=== PATIENT | male | born 1950 | race Caucasian/White ===

== ENCOUNTER 2020-12-04 13:23 | Outpatient (REF) | payer MEDICARE, SELFPAY ==
[2020-12-04 15:36] LABS: Prostate Specific Antigen 2.54 ng/mL (<0.05-4.0)
== END 2020-12-04 13:24 | disposition home or self-care (01) ==
LOC: HO.LAB 13:23
PROVIDERS: PCP Nurse Practitioner Adult Health; Visit Provider Urology
DX: Z12.5 Encounter for screening for malignant neoplasm of prostate (principal); R39.12 Poor urinary stream; N40.1 Benign prostatic hyperplasia with lower urinary tract symptoms; N13.8 Other obstructive and reflux uropathy
CPT/HCPCS: 36415; 51798; 84153; 99202

== ENCOUNTER 2022-08-27 15:45 | Outpatient (REF) | payer MEDICARE, SELFPAY ==
[2022-08-27 18:17] LABS: Prostate Specific Antigen 3.33 ng/mL (<0.05-4.0)
== END 2022-08-27 15:46 | disposition home or self-care (01) ==
LOC: HO.LAB 15:45
PROVIDERS: PCP Nurse Practitioner Adult Health; Visit Provider Urology
DX: Z12.5 Encounter for screening for malignant neoplasm of prostate (principal); R39.12 Poor urinary stream
CPT/HCPCS: 36415; 84153

== ENCOUNTER → 2022-09-05 10:15 | Outpatient (BNVA) | payer MEDICARE, SELFPAY | PROVIDERS: PCP Nurse Practitioner Adult Health; Visit Provider Urology | DX: N40.1 Benign prostatic hyperplasia with lower urinary tract symptoms (principal); R35.1 Nocturia; R39.12 Poor urinary stream | CPT/HCPCS: 99212 ==

== ENCOUNTER 2023-10-09 09:57 | Outpatient (REF) | payer MEDICARE, SELFPAY ==
[2023-10-09 11:38] LABS: Prostate Specific Antigen 2.37 ng/mL (<0.05-4.0)
== END 2023-10-09 09:58 | disposition home or self-care (01) ==
LOC: HO.LAB 09:57
PROVIDERS: Visit Provider Urology
DX: Z12.5 Encounter for screening for malignant neoplasm of prostate (principal); R39.12 Poor urinary stream
CPT/HCPCS: 36415; 84153

== ENCOUNTER 2023-10-13 11:36 | Outpatient (AMB) | payer MEDICARE, SELFPAY ==
--- NOTE | 2023-10-13 11:49 | MHC.OFFVIS ---
Intake Visit Reasons: PSA- follow up(set) Allergies No Known Allergies [No Known Allergies*] Allergy (Verified 09/05/22 11:21) Medication List - Last Reconciled 10/13/23 by Xu Weeks MD tamsulosin 0.4 mg PO BEDTIME 30 days HPI Comments Details: Miah is a pleasant male. He is a patient of Dr. Gutierrez. He is seen for the following urologic condition - lower urinary tract symptoms Not using medications Symptoms currently stable Twelve month follow-up PSA Lower urinary tract symptoms progressive weakness of stream not currently on any medications associated symptoms - nocturia x2, hesitancy no prior medications normal rectal exam PSA 01/22 3.4, 08/28 3.3, 09/29 2.4 Twelve month follow-up PSA [facility] Medical History (Updated 11/11/22 @ 22:05 by Xu Weeks MD) Spermatocele Nocturia Benign prostatic hyperplasia with lower urinary tract symptoms Medial meniscus tear Review of Systems Const Denies chills and Denies fever(s) Card Reports no additional complaints and Denies syncope Resp Denies cough GI Denies abdominal pain and Denies heartburn Reports as per HPI and Denies change in libido Neuro Denies syncope Psych Denies change in libido Endo Denies change in libido Physical Exam Const General: cooperative, healthy appearing, comfortable and no acute distress Orientation/consciousness: patient oriented x3 HEENT Face and sinus: Yes normal facial exam Mouth: moist mucous membranes Neck Neck: Yes normal visual inspection, Yes full ROM and Yes trachea midline Chest Chest palpation & inspection: normal inspection of the chest Resp Effort & Inspection: normal respiratory effort, able to speak in complete sentences and no respiratory distress GI Inspection: Yes normal to inspection Back/Spine/Pelvis Cervical Spine: normal cervical lordosis Thoracic/Lumbar Spine: thoracic and lumbar spine normal to inspection Skin General skin exam: no rashes or lesions noted Neuro General: patient oriented x3, gait normal, tone normal and moves all extremities Extrem General: Yes normal to inspection and Yes capillary refill normal Assessment & Plan Assessment & Plan (1) Benign prostatic hyperplasia with lower urinary tract symptoms: Code(s): N40.1 - Benign prostatic hyperplasia with lower urinary tract symptoms Category: Medical (2) Nocturia: Code(s): R35.1 - Nocturia Category: Medical (3) Weak urinary stream: Code(s): R39.12 - Poor urinary stream Category: Medical Plan Twelve month follow-up PSA Orders: Orders Prostate Specific Antigen 364 Days N40.1 - Benign prostatic hyperplasia with lower urinary tract symptoms Patient Instructions: Imaging studies, laboratory and physical exam results were discussed and reviewed in detail. No major barriers to patient understanding were identified. An opportunity to ask questions regarding the treatment plan was provided. All questions were answered. The patient expressed understanding and agreement with the above treatment plan. The patient is aware they should contact our office by phone for worsening of their current condition or the appearance of new urologic symptoms. Compliance is encouraged with any medications and followup testing that is ordered. It is a privilege to participate in the urologic care of your patient. If you have any questions or concerns regarding treatment for the above conditions, or other urologic issues, please do not hesitate to contact me. The office telephone contact is [phone]. This note is constructed using voice recognition software. While every effort has been made to ensure accuracy tools developer errors may have been included. Yours sincerely, Dr Xu Weeks MD, [facility] - Urology Providers of Expert, Compassionate Care for the Genitourinary System Coding Level of Care Code Est Pt Level 4 (65407) Diagnoses Benign prostatic hyperplasia with lower urinary tract symptoms N40.1 Nocturia R35.1 Weak urinary stream R39.12
== END 2023-10-13 12:20 | disposition home or self-care (01) ==
PROVIDERS: PCP Nurse Practitioner Adult Health; Visit Provider Urology
DX: N40.1 Benign prostatic hyperplasia with lower urinary tract symptoms (principal); R35.1 Nocturia; R39.12 Poor urinary stream
CPT/HCPCS: 99213

== ENCOUNTER → 2023-10-13 11:36 | Outpatient (BNVA) | payer MEDICARE, SELFPAY | PROVIDERS: PCP Nurse Practitioner Adult Health; Visit Provider Urology | DX: N40.1 Benign prostatic hyperplasia with lower urinary tract symptoms (principal); R35.1 Nocturia; R39.12 Poor urinary stream | CPT/HCPCS: 99212 ==

== ENCOUNTER 2024-09-02 08:28 | Day surgery (SDC) | payer MEDICARE, OTHER, SELFPAY ==
--- OUTSIDE RECORDS SUMMARY | 2024-08-02 11:08 | XMS_ITS | Encounter Summary ---
Author Organization [facility] Address [address] [place] [address] Care Team Providers Care Rotor Pilot Name Role Phone Dennise Gutierrez CLAUDIA Primary Care Provider [phone] Reason for Visit * Reason Onset Date Comments No Call No Show 07/04/2024 Encounter Details Date Type Department Care Team (Late st Contact Info) Description 07/04/[address] [facility] [address] [facility] [address] [place] [phone] Bev Carballo [place] No Call No Show Social History Tobacco Use Types Packs/Day Years Used Date Smoking Tobacco: Never Assessed Sex and Gender Information Value Date Recorded Sex Assigned at Not on file Legal Sex Male 11:58 AM EST Gender Identity Not on file Sexual Orientation Not on file documented as of this encounter Progress Notes * Bev Carballo MA - 07/04/2024 3:03 PM EST Patient recently no-showed appointment on 06/15/24 however has an upcoming rescheduled appointment in August. documented in this encounter Plan of Treatment Upcoming Encounters Date Type Department Care Team (Late st Contact Info) Description 08/15/2024 10:00 AM EDT Office Visit [facility] [address] [place] [phone] Dorian Linares MD [address] [place] [address] [address] [place] [address] documented as of this encounter Visit Diagnoses Not on filedocumented in this encounter Care Teams Rotor Pilot Relationship Specialty Start Date End Date Dennise Gutierrez NP [address] [place] [address] [address] [place] [address] PCP - General 10/19/21 documented as of this encounter
--- OUTSIDE RECORDS SUMMARY | 2024-08-02 11:09 | XMS_ITS | Encounter Summary ---
Author Organization [facility] Address [address] [place] [address] Care Team Providers Care Trim Machine Operator Name Role Phone Community, Pcp Primary Care Provider Dennise Gasca NP Primary Care Provider Unava ilable Encounter Details Date Type Department Care Team Description 12/03/2017 Business Doc Medical Records [address] [place] [id number] Abstract, Provider Social History Tobacco Use Types Packs/Day Years Used Date Smoking Tobacco: Former Smokeless Tobacco: Never Sex Assigned at Date Recorded Not on file documented as of this encounter Plan of Treatment Not on file documented as of this encounter Visit Diagnoses Not on filedocumented in this encounter Care Teams Trim Machine Operator Relationship Specialty Start Date End Date Community, Pcp PCP - General Internal Medicine 10/26/17 10/18/21 Dennise Gutierrez NP PCP - General Nurse Practioner Adult Health 10/19/21 documented as of this encounter
--- OUTSIDE RECORDS SUMMARY | 2024-08-02 11:09 | XMS_ITS | Clinical Summary ---
Author Organization [facility] Address [address] [place] [address] Phone Care Team Providers Care Product Support Rep Name Role Phone Dennise Gutierrez SUPERVISOR CUSTOMER COMPLAINT SERVICE Primary Care Provider [phone] Allergies No known active allergies Active Problems Problem Noted Date Diagnosed Date Elevated coronary artery calcium score Essential hypertension 06/13/2024 Hypercholesteremia 06/13/2024 Encounters Date Type Department Care Team Description 07/04/2024 Telephone [facility] [address] [place] [address] [place] [address] Bev Carballo [place] No Call No Show 05/13/2024 Telephone [facility] [address] [place] [phone] Dennise Gutierrez NP Referral from Last 3 Months Medical History Medical History Date Comments Type 2 diabetes mellitus wit h hyperglycemia, without long-term current use of insulin ([facility]) Family history of heart disease Social History Tobacco Use Types Packs/Day Years Used Date Smoking Tobacco: Never Assessed Sex and Gender Information Value Date Recorded Sex Assigned at Not on file Legal Sex Male 11:58 AM EST Gender Identity Not on file Sexual Orientation Not on file Obstetrics History Plan of Treatment Upcoming Encounters Date Type Department Care Team (Late st Contact Info) Description 08/15/2024 10:00 AM EDT Office Visit [facility] [address] [place] [phone] Dorian Linares MD [address] [place] [address] [place] [address] Health Maintenance Due Date Last Done Comments DTaP,Tdap,and Td Vaccines (1 - Tdap) 1971 Pneumococcal Vaccine: 50+ Ye ars (1 of 1 - PCV) 2002 Zoster Vaccines (1 of 2) 2002 Abdominal Aortic Aneurysm (A AA) Screen 05/06/2022 Cholesterol Screening (Lipid Panel) 05/06/2022 Colorectal Cancer Screening: Colonoscopy 05/06/2022 Depression Screening 05/06/2022 Falls Risk Assessment 05/06/2022 Hepatitis C Screening 05/06/2022 Medicare Annual Wellness Visit 05/06/2022 Social Influencers of Health Screening 05/06/2022 COVID-19 Vaccine (1 - 2023-2 5 season) 2024 Influenza Vaccine (#1) 2024 Hypertension/CHF/CAD Annual BMP Blood Test 05/18/2024 RSV Immunization Patients 60 + Years Old (1 - 1-dose 75+ series) 2027 HIB Vaccines Aged Out No longer eligi ble based on patient's age to complete this topic HPV Vaccines Aged Out No longer eligi ble based on patient's age to complete this topic Hepatitis A Vaccines Aged Out No long er eligible based on patient's age to complete this topic Hepatitis B Vaccines Aged Out No long er eligible based on patient's age to complete this topic IPV Vaccines Aged Out No longer eligi ble based on patient's age to complete this topic MMR Vaccines Aged Out No longer eligi ble based on patient's age to complete this topic Meningococcal ACWY Vaccine Aged Out N o longer eligible based on patient's age to complete this topic Meningococcal B Vacine Aged Out No lo nger eligible based on patient's age to complete this topic RSV Immunization Patients Un [place] 20 months Aged Out No longer eligible b ased on patient's age to complete this topic Varicella Vaccines Aged Out No longer eligible based on patient's age to complete this topic [place] [address] MEDICARE Care Teams Product Support Rep Relationship Specialty Start Date End Date Dennise Gutierrez NP [address] [place] [address] [address] [place] [address] PCP - General 10/19/21
--- OUTSIDE RECORDS SUMMARY | 2024-08-02 11:09 | XMS_ITS | Continuity of Care Document ---
Author Name [facility] Address [address] [place] [address] Organization [facility] Care Team Providers Care Government Guard Name Role Phone [facility] Unavailable Unavailable Problems Problem Status Onset Date Problem Type Date of Resolution Comme nts Source Ankle joint pain (finding) 10/06/2023 Diagnosis Results Order Name Results Value Reference Range Date Interpretation Comments Source XR Ankle Complete 3+ Views Left XR Ankle Complete 3+ Views Left XR General Diagnostic Accession # Exam Date/Time Procedure Ordering Provider [id number] 10/06/2023 14:12 CDT XR Ankle Complete 3+ Luebbert SERVER SUPPORT TECHNICIAN-C, Yanelis Views Left N Reason For Exam (XR Ankle Complete 3+ Views Left) anterior ankle pain Report INDICATION: Left ankle pain TECHNIQUE: 3 views of the left ankle are obtained. FINDINGS: No fracture or dislocation identified. There is a tiny plantar calcaneal spur. Corticated bone fragment the talonavicular joint is noted. IMPRESSION: No fracture or dislocation identified. * * *Final Report* * * Electronically Signed by: Danny Santos MD Signed on: 10/06/23 14:20 10/05 14:01 :32 [facility] Vital Signs Vital Sign Value Date Comments Source SBP NIBP 154 mm[Hg] 10/06/2023 18:40:[address] [facility] [address] DBP NIBP 79 mm[Hg] 10/06/2023 18:40:00 [facility] Heart Rate 70 bpm 10/06/2023 18:40:00 [facility] Respiratory Rate 18 breaths/min 10/06/2023 18:40:00 [facility]gent [facility] SpO2 95 % 10/06/2023 18:40:00 Urgent [facility] Temperature (Celsius) 37.2 Franchesca 10/06/2023 18:40:00 [facility] [address] Encounters Location Location Details Encounter Type Encounter Number Reason For Visit Attending Provider ADM Date DC Date Status Source [facility]gent [facility] [id number] Yanelis Dennis 10/05 18:31 :38 10/05 19:52 :00 [facility] [address] Social History Social History Date Source No data available for this section 10/06/2023 [facility] [address] [address]
--- OUTSIDE RECORDS SUMMARY | 2024-08-02 11:09 | XMS_ITS | Encounter Summary ---
Author Organization [facility] Address [address] [place] [address] Care Team Providers Care Nurse Technician Name Role Phone Community, Pcp Primary Care Provider Dennise Gasca NP Primary Care Provider Unava ilable Encounter Details Date Type Department Care Team Description 12/16/2017 Release of Information Medical Records [address] [place] [id number] Abstract, Provider Social History Tobacco Use Types Packs/Day Years Used Date Smoking Tobacco: Former Smokeless Tobacco: Never Sex Assigned at Date Recorded Not on file documented as of this encounter Plan of Treatment Not on file documented as of this encounter Visit Diagnoses Not on filedocumented in this encounter Care Teams Nurse Technician Relationship Specialty Start Date End Date Community, Pcp PCP - General Internal Medicine 10/26/17 10/18/21 Dennise Gutierrez NP PCP - General Nurse Practioner Adult Health 10/19/21 documented as of this encounter
[2024-08-31 15:02] VITALS: BMI 26.0
--- NOTE | 2024-09-01 08:56 | HO.ANESPROP2 ---
Documented by User: Aura Jenkins NP 09/01/24 08:56 HPI - Anesthesia Eval Consult details Narrative: 74yo M for Colonoscopy [facility] Active Problems Active Problems: All Active Problems Weak urinary stream (Acute) Nocturia (Acute) Benign prostatic hyperplasia with lower urinary tract symptoms (Acute) Past Medical History Medical History Spermatocele Nocturia Benign prostatic hyperplasia with lower urinary tract symptoms Medial meniscus tear Surgical History Surgical History Hx of tonsillectomy Hx of splenectomy (~1960) History of esophagogastroduodenoscopy (EGD) Hx of colonoscopy Social History Social History Patient Tobacco Use Status: Former Tobacco user Use of substances other than those prescribed or required for medical reasons: Yes Are you DNR?: No Advance Directives: No Advance Directives Information Provided: Yes Recently lost weight without trying: No Nutrition Risks: No Nutritional Risk Meds Allergies Allergy/AdvReac Type Severity Reaction Status Date / Time No Known Allergies Allergy Verified 08/31/24 15:01 [No Known Allergies*] Home Medications ?Medication ?Instructions ?Recorded ?Confirmed ?Last Taken ?Type lisinopril 10 mg tablet 10 mg PO DAILY 08/31/24 08/31/24 Unknown History rosuvastatin 5 mg tablet 5 mg PO DAILY 08/31/24 08/31/24 Unknown History Exam Height,Weight and Vital Signs: Height 5 ft 10 in Weight 82.1 kg Assessment and Plan Assessment Anesthesia Assessment: Chart Reviewed Documented by User: Kaitlin Loyd MD 09/02/24 10:12 [facility] Past Medical History Medical History Spermatocele Nocturia Benign prostatic hyperplasia with lower urinary tract symptoms Medial meniscus tear Family History Family history of problems with anesthesia: No Surgical History Surgical History Hx of tonsillectomy Hx of splenectomy (~1960) History of esophagogastroduodenoscopy (EGD) Hx of colonoscopy History of Problems with Anesthesia: No Social History Social History Patient Tobacco Use Status: Former Tobacco user Use of substances other than those prescribed or required for medical reasons: Yes Are you DNR?: No Advance Directives: No Advance Directives Information Provided: Yes Recently lost weight without trying: No Nutrition Risks: No Nutritional Risk Meds Allergies Allergy/AdvReac Type Severity Reaction Status Date / Time No Known Allergies Allergy Verified 08/31/24 15:01 [No Known Allergies*] Home Medications ?Medication ?Instructions ?Recorded ?Confirmed ?Last Taken ?Type lisinopril 10 mg tablet 10 mg PO DAILY 08/31/24 08/31/24 Unknown History rosuvastatin 5 mg tablet 5 mg PO DAILY 08/31/24 08/31/24 Unknown History Exam Height,Weight and Vital Signs: Height 5 ft 10 in Weight 82.1 kg Vital Signs Temp Pulse Resp BP Pulse Ox O2 Del Method 09/02/24 09:16 97.7 F 64 16 140/60 H 98 Room Air Airway Mallampati Class: III TM Dist: >3cm Neck ROM: Full Loose/Missing/Broken Teeth: Yes (Missing molars. Denies broken or loose teeth ) Heart: RRR Lungs: CTAB Assessment and Plan Assessment Anesthesia Assessment: Anesthesia Plan Discussed and Chart Reviewed Final Anesthetic Review Family History of Problems with Anesthesia: No History of Problems with Anesthesia: No NPO: Yes ASA Class: II Final Preanesthetic Review: No Changes in Pt Med Stat, Meds/Allgs Chart Reviewed, Consent Obtained/Reviewed and Anes Risks/Benef Reviewed Patient Risk: Low Procedure Risk: Low Assessment/Block/Sedation in SS: Assess/Block/Sedation-SS Anesthetic Plan Anesthetic Plan: TIVA Disposition: Standard PACU
[2024-09-02 09:00] VITALS: BMI 26.3
[2024-09-02 09:16] VITALS: BP 140/60; PULSE 64; RESP 16; TEMP 36.5; O2SAT 98
[2024-09-02] MEDS: Lactated Ringers 1,000 ML 100 ML IVCONT (09:22)
[2024-09-02 10:47] VITALS: BP 88/45; PULSE 49; RESP 14; TEMP 36.1
--- NOTE | 2024-09-02 10:49 | P.BOP_ITS ---
Brief Operative Note Date of Service: 09/02/24 Pre-op diagnosis: Screening Post-op diagnosis: other (Colon polyp) Procedure: Colonoscopy to the cecum and TI with bx/removal of polyp Surgeon: Tae Jessica MD Anesthesia: MAC Was an Marine Cargo Inspector used for this Procedure?: No Estimated blood loss (mL): 2.0 Pathology: other (A. Polyp at 20cm) Condition: stable Disposition: PACU
[2024-09-02 11:07] VITALS: BP 106/54; PULSE 47; RESP 18; TEMP 36.2; O2SAT 100
--- NOTE | 2024-09-02 11:32 | OP_ITS ---
DATE OF SERVICE: 09/02/2024 SURGEON: Tae Jessica MD INDICATIONS: The patient presents for evaluation of colorectal cancer screening and personal history of tubular adenoma of the colon. Full consent obtained from him for this, including risks of bleeding and perforation. PREOPERATIVE DIAGNOSIS: POSTOPERATIVE DIAGNOSIS: PROCEDURE PERFORMED: Colonoscopy to the cecum and terminal ileum with biopsy and removal of polyp. ESTIMATED BLOOD LOSS: COMPLICATIONS: ANESTHESIA: Monitored anesthesia care. ASSISTANTS: SPECIMENS: PREOPERATIVE DIAGNOSES: Colorectal cancer screening and personal history of tubular adenoma of the colon. POSTOPERATIVE DIAGNOSES: Colorectal cancer screening and personal history of tubular adenoma of the colon, small colon polyp, diverticulosis, and internal hemorrhoids. DESCRIPTION OF PROCEDURE: The patient was placed in left lateral decubitus position. The digital rectal exam revealed no abnormalities. The Olympus video pediatric colonoscope was entered into the rectum and advanced easily to the cecum. Once in the cecum, I did identify normal-appearing cecal pouch with appendiceal orifice and a normal-appearing ileocecal valve. The terminal ileum was cannulated and appeared normal. The scope withdrawn back in the colon. The entire cecum and ileocecal valve appeared normal. The scope was slowly withdrawn assessing all mucosal surfaces carefully. Preparation was excellent after a lot of suctioning and irrigation. At 20 cm, it was a flat, approximately 3 mm polyp, which was biopsied and completely removed with cold biopsy forceps. I did not visualize any other polyps, colitis, or angiodysplasia. There was a moderate amount of sigmoid diverticulosis. In the rectum, scope was retroflexed visualizing internal hemorrhoids, but no other pathology. The rectal mucosa appeared normal. The scope was straightened and withdrawn from the patient. He tolerated the procedure well and was returned to the recovery area in stable condition. IMPRESSION: 1. Small colon polyp. 2. Diverticulosis. 3. Internal hemorrhoids. PLAN: The results of the biopsy will be checked. I would recommend a repeat colonoscopy in 5 years for further surveillance. He will otherwise see me on a p.r.n. basis. MD JOSE Vega/HUGO / [phone]
== END 2024-09-02 11:35 | disposition home or self-care (01) ==
PROVIDERS: PCP Nurse Practitioner Adult Health; Visit Provider Internal Medicine
PROC: 0DJD8ZZ Inspection of Lower Intestinal Tract, Via Natural or Artificial Opening Endoscopic (ICD-10-PCS; CPT 45378; principal; 2024-09-02 09:30)
DX: Z12.11 Encounter for screening for malignant neoplasm of colon (principal); Z86.0101 Personal history of adenomatous and serrated colon polyps; K63.5 Polyp of colon; K57.30 Diverticulosis of large intestine without perforation or abscess without bleeding; K64.8 Other hemorrhoids; K20.0 Eosinophilic esophagitis; Z90.81 Acquired absence of spleen; Z79.899 Other long term (current) drug therapy
CPT/HCPCS: 45380; 88305; J2003; J2704

== ENCOUNTER 2024-10-07 11:06 | Outpatient (REF) | payer MEDICARE, OTHER, SELFPAY ==
--- OUTSIDE RECORDS SUMMARY | 2024-10-07 12:11 | XMS_ITS | Continuity of Care Document ---
Author Organization [facility]. If a dditional information is needed, contact Health Information Management at [phone] Address [address] [place] [address] Phone Care Team Providers Care Linux Administrator Name Role Phone Unavailable Unavailable Unavailable Unavailable Unavailable Unavailable Unavailable Unavailable Unavailable Problems Nausea and vomiting Onset:20-Apr-2016 Estella Guevara MD Abdominal pain Onset:20-Apr-2016 Estella Guevara MD Syncope Onset:20-Apr-2016 Estella Guevara MD Mental Status Cognitive function finding 18-Apr-2016 Functional Status Functional finding 18-Apr-2016 Allergies and Adverse Reactions NO KNOWN ALLERGIES(Allergy) Onset: 30-Sep-2023 No Known Allergies(Allergy) Onset: 18-Apr-2016 Social History Smoking Status Never smoked tobacco Recorded: 18-Apr-2016
--- OUTSIDE RECORDS SUMMARY | 2024-10-07 12:11 | XMS_ITS ---
Author Organization [facility] Address [address] [place] [address] Care Team Providers Care Manager Administrative Services Name Role Phone SERENA TAYLOR, SWETA Primary Care Provider Unavail Tae Baires Unavailable [phone] REASON FOR VISIT screening colon Encounters Encounter Location Date Provider Diagnosis [facility] [address] [place] [address] 04/14/2024 Tae Jessica Plan Of Treatment No Information Progress Notes * ROBERTO OCAMPODOB:1950 (74 yo M)Acc No.[id number]:04/14/2024 Progress Notes Patient:?ROBERTO OCAMPO Provider:?Tae Jessica MD :1950???Age:73 Y???Sex:Male Yann e:04/14/2024 [address] [facility] Pcp:SWETA LYONS NP Subjective: * Chief Complaints: * ???1. Screening colon. * Medical History:? Objective: * Vitals:? Assessment: Plan: * Treatment: * * The named appointment provid er may or may not be the originator of this progress note, and it is not deemed complete until electronically signed by the appointment provider. Sign off status: Pending * Provider:?Tae Jessica MD Date:? 024 Generated for Chaitanyai ng/Fashanig/eTransmitting on:?10/07/2024 12:11 PM EDT
--- OUTSIDE RECORDS SUMMARY | 2024-10-07 12:11 | XMS_ITS | Clinical Summary ---
Author Organization [facility] Address [address] [facility] [place] [address] Phone Care Team Providers Care Vineyard Supervisor Name Role Phone Matt Dennise TAYLOR Primary Care Provider [phone] Allergies No known active allergies Medications lisinopriL (PRINIVIL,ZESTRI L) 10 mg tablet Take 1 tablet (10 mg total) by mouth 1 (one) time each day. Active rosuvastatin (CRESTOR) 5 mg tablet Take 1 tablet (5 mg total) by mouth 1 (one) time each day. Active Hospital, Clinic, or Other Facility Administered Medication Ordered Dose Route Frequency Start Date End Date Status perflutren lipid microsphere (DEFINITY) 0.78 mL in sodium chloride 0.9% 5.22 mL injectionIndications:Essent ial hypertension,Aortic dilatation (CMS/HCC V24) 6 mL IV Once 10/07/2024 10/07/2024 Ended Active Problems Problem Noted Date Diagnosed Date Aortic dilatation (CMS/HCC V24) 08/15/2024 Assessment & Plan (08/15/2024 11:29 AM EDT): CT scan for coronary artery calcium score disclosed ascending aorta at the upper limits of normal. I recommended an echocardiogram to evaluate cardiac structure and function and to better assess the size of the aorta. I did review that it would be likely based on his age/gender/body surface area that his aorta is actually not significantly enlarged. Elevated coronary artery calcium score Assessment & Plan (08/15/2024 11:28 AM EDT): Finding of moderately elevated coronary artery calcium score. Presently asymptomatic from a cardiac perspective. I counseled that these findings of a moderate degree of coronary calcification can reflect a precursor to obstructive CAD although I reassured him that he is not exhibiting signs or symptoms present of coronary insufficiency. I recommend starting aspirin 81 mg a day. Continue statin therapy with goal LDL of less than 70 (last lipid profile is at goal). Blood pressure is well-controlled less than 130/80. He will remain physically active. He will let us know if he develops any concerning signs or symptoms. Essential hypertension 06/13/2024 Hypercholesteremia 06/13/2024 Encounters Date Type Department Care Team Description 10/07/2024 10:00 AM EDT Ancillary Procedure [facility] Cardiology [facility] [address] [place] [id number] Essential hypertension; Aortic dilatation ([facility] V24) 08/15/2024 10:00 AM EDT Office Visit [facility] Cardiology [facility] [address] [place] [id number] Albaro Chandler MD Essential hypertension (Primary Dx); Aortic dilatation ([facility] V24); Elevated coronary artery calcium score from Last 3 Months Medical History Medical History Date Comments Type 2 diabetes mellitus wit h hyperglycemia, without long-term current use of insulin ([facility] V24, [facility] V28) Family history of heart disease Social History Tobacco Use Types Packs/Day Years Used Date Smoking Tobacco: Never Smokeless Tobacco: Never Tobacco Cessation:Counseling Given: Not Answered Alcohol Use Standard Drinks/Week Comments Never 0 (1 standard drink = 0.6 oz pur e alcohol) Sex and Gender Information Value Date Recorded Sex Assigned at Not on file Legal Sex Male 11:58 AM EST Gender Identity Not on file Sexual Orientation Not on file Obstetrics History Last Filed Vital Signs Vital Sign Reading Time Taken Comments Blood Pressure 135/73 10/07/2024 10:36 AM EDT Pulse 57 08/15/2024 10:05 AM EDT Temperature - - Respiratory Rate - - Oxygen Saturation 99% 08/15/2024 10:05 AM EDT Inhaled Oxygen Concentration - - Weight 83.5 kg (184 lb) 10/07/2024 10:36 AM EDT Height 180.3 cm (5' 11 ) 10/07/2024 10:36 AM EDT Body Mass Index 25.66 10/07/2024 10:36 AM EDT Plan of Treatment Health Maintenance Due Date Last Done Comments Diabetes: Annual Foot Exam 1962 Diabetes: Annual Retina Eye Exam 1962 Zoster Vaccines (1 of 2) 1971 Pneumococcal Vaccine: 50+ Years (2 of 2 - PPSV23) 01/29/2021 12/04/2020 Colorectal Cancer Screening: Colonoscopy 05/06/2022 Depression Screening 05/06/2022 Falls Risk Assessment 05/06/2022 Hepatitis C Screening 05/06/2022 Medicare Annual Wellness Visit 05/06/2022 Social Influencers of Health Screening 05/06/2022 COVID-19 Vaccine (8 - Moderna risk season) 2024 02/10/2024, 05/17/2023, 07/05/2022, Additional history exists Diabetes: Annual Urine Albumin-Creatinine Ratio (uACR) 08/15/2024 Diabetes: Blood Sugar Control Test (HGBA1C) 08/15/2024 Diabetes: Annual GFR (Glomerular Filtration Rate) 08/04/2025 08/04/2024, 04/18/2024, 03/10/2022, Additional history exists Hypertension/CHF/CAD Annual BMP Blood Test 08/04/2025 08/04/2024, 04/18/2024, 03/10/2022, Additional history exists RSV Immunization Adult Patients (1 - 1-dose 75+ series) 2027 Cholesterol Screening (Lipid Panel) 08/04/2029 08/04/2024 DTaP,Tdap,and Td Vaccines (3 - Td or Tdap) 11/22/2031 11/21/2021, 10/01/2011 Influenza Vaccine Completed 03/28/2024, , 03/08/2022, Additional history exists HIB Vaccines Aged Out No longer eligi [...] age to complete this topic Meningococcal B Vaccine Aged Out No l onger eligible based on patient's age to complete this topic RSV Immunization Patients Under 20 months Aged Out No longer eligible based on patient's age to complete this topic Varicella Vaccines Aged Out No longer eligible based on patient's age to complete this topic Procedures Procedure Name Priority Date/Time Associated Diagnosis Comments ECG 12-LEAD Routine 08/15/2024 10:14 AM EDT Essential hypertension from Last 3 Months Results * ECG 12 lead (08/15/2024 10:14 AM EDT) Ventricular Rate ECG 57 BPM GEMUSE Atrial Rate 57 BPM GEMUSE P-R Interval 220 ms GEMUSE QRS Duration 120 ms GEMUSE Q-T Interval 390 ms GEMUSE QTc 379 ms GEMUSE P Wave Pixley 18 degrees GEMUSE R Pixley -30 degrees GEMUSE T Pixley 2 degrees GEMUSE ECG Interpretation Sinus bradycardia with 1st degree A-V block Left axis deviation Non-specific intra-ventricu lar conduction delay Abnormal ECG No previous ECGs available Confirmed by ALBARO CHANDLER ([id number]) on 08/15/2024 11:25:58 AM GEMUSE 08/15/2024 10:1 4 AM EDT 08/15/2024 11:25 AM EDT us Albaro Chandler MD ECG ORDERABLES Final Result GEMUSE from Last 3 Months Insurance MEDICARE [facility] Care Teams Vineyard Supervisor Relationship Specialty Start Date End Date Dennise Gutierrez NP [address] [place] [address] [address] [place] [address] PCP - General 10/19/21
--- OUTSIDE RECORDS SUMMARY | 2024-10-07 12:12 | XMS_ITS | Encounter Summary ---
Author Organization [facility] Address [address] [place] [address] Care Team Providers Care Bag Filler Name Role Phone Dennise Gutierrez NP Primary Care Provider [phone] Reason for Visit * Imaging (Routine) - Authorized Specialty Diagnoses / Procedures Referred By Contac t Referred To Contact Cardiology Diagnoses Essential hypertension Aortic dilatation (CMS/HCC V24) Procedures Transthoracic echocardiogram (TTE) complete with PRN contrast, bubble, strain, and 3D order panel OK TTE W 2D IMAGE COMPLETE W DOPPLER ECHO & COLOR FLOW DOPPLER ECHO OK ALCIDES 2D COMPLETE W/CONTRAST OR W & WO CONTRAST WITH DOPPLER Dorian Linares MD [address] [place] [address] [address] [place] [address] Phone: tel: fax: [facility] Referral ID Status Reason Start Date Expiration Date V isits Requested Visits Authorized [id number] Authorized 08/15/2024 08/15/2025 1 1 Encounter Details Date Type Department Care Team (Latest Contact Info) Description 10/07/2024 10:00 AM EDT Ancillary Procedure [facility] [address] [place] [address] Essential hypertension; Aortic dilatation (CMS/HCC V24) Social History Tobacco Use Types Packs/Day Years Used Date Smoking Tobacco: Never Smokeless Tobacco: Never Alcohol Use Standard Drinks/Week Comments Never 0 (1 standard drink = 0.6 oz pur e alcohol) Sex and Gender Information Value Date Recorded Sex Assigned at Not on file Legal Sex Male 11:58 AM EST Gender Identity Not on file Sexual Orientation Not on file documented as of this encounter Last Filed Vital Signs Vital Sign Reading Time Taken Comments Blood Pressure 135/73 10/07/2024 10:36 AM EDT Pulse - - Temperature - - Respiratory Rate - - Oxygen Saturation - - Inhaled Oxygen Concentration - - Weight 83.5 kg (184 lb) 10/07/2024 10:36 AM EDT Height 180.3 cm (5' 11 ) 10/07/2024 10:36 AM EDT Body Mass Index 25.66 10/07/2024 10:36 AM EDT documented in this encounter Plan of Treatment Pending Results Name Type Priority Associated Diagnoses Date/Time Transthoracic echocardiogram (TTE) complete with PRN contrast, bubble, strain, and 3D order panel Echocardiography Routine Essential hypertension Aortic dilatation ([facility] V24) 10/07/2024 10:36 AM EDT documented as of this encounter Visit Diagnoses Diagnosis Essential hypertension Unspecified essential hypertension Aortic dilatation ([facility]/HCC V24) documented in this encounter Administered Medications Inactive Administered Medications - up to 3 most recent administrations Medication Order MAR Action Action Date Dose Rate Site perflutren lipid microsphere (DEFINITY) 0.78 mL in sodium chloride 0.9% 5.22 mL injection 6 mL, intravenous, Administer over 10 Minutes, Once, On Thu10/07/24 at 1100, For 1 doseIndications:Essential hypertension,Aortic dilatation ([facility] V24) Given 10/07/2024 10:37 AM EDT 6 mL documented in this encounter Orders Medications Ordered That Mark ht Not Have Been Administered Count Last Ordered Date First Ordered Date perflutren lipid microsphere (DEFINITY) 0.78 mL in sodium chloride 0.9% 5.22 mL injection 1 10/07/2024 documented in this encounter Care Teams Bag Filler Relationship Specialty Start Date End Date Dennise Gutierrez NP [address] [place] [address] [address] [place] [address] PCP - General 10/19/21 documented as of this encounter
--- OUTSIDE RECORDS SUMMARY | 2024-10-07 12:12 | XMS_ITS ---
Author Organization [facility] Address [address] [place] [address] Care Team Providers Care Infection Control Rn Name Role Phone SWETA LYONS NP Primary Care Provider Unavail Tae Baires Unavailable [phone] REASON FOR VISIT screening, hx polyps Encounters Encounter Location Date Provider Diagnosis [facility] Outpatient [address] [place] [phone] 09/02/2024 Tae Jessica Colon cancer scree salvador Z12.11 ; Personal history of colonic polyps Z86.0100 ; Colon polyps K63.5 and Other hemorrhoids K64.8 Assessments Encounter Date Diagnosis (ICD Code) Assessment Notes Treatment Notes Treatment Clinical Notes Section Notes 09/02/2024 Colon cancer screening (ICD-10 - Z12.11) 09/02/2024 Personal history of colonic polyps (ICD-10 - Z86.0100) 09/02/2024 Colon polyps (ICD-10 - K63.5) 09/02/2024 Other hemorrhoids (ICD-10 - K64.8) Plan Of Treatment No Information Progress Notes * ROBERTO OCAMPODOB:1950 (74 yo M)Acc No.[id number]:09/02/2024 COLON WITH MAC Patient:?ROBERTO OCAMPO Provider:?Tae Jessica MD :1950???Age:74 Y???Sex:Male Yann e:09/02/2024 [address] Pcp:SWETA LYONS NP Subjective: * Chief Complaints: * ???1. Screening, hx polyps. * Medical History:? Objective: * Vitals:? Assessment: * Assessment: 1.?Colon cancer screening - Z12.11 (Primary)???2.?Personal history of colonic polyps - Z86.0100???3.?Colon polyps - K63.5???4.?Other hemorrhoids - K64.8??? Plan: * Treatment: * Procedure Codes:?30070 COLON OSCOPY AND BIOPSY, Modifiers: PT , 0529F INTRVL 3+YRS PTS CLNSCP DOCD, 0528F RCMND FLW-UP 10 YRS DOCD * * The named appointment provid er may or may not be the originator of this progress note, and it is not deemed complete until electronically signed by the appointment provider. Sign off status: Pending * Provider:?Tae Jessica MD Date:? 025 Generated for Valentine rutherford/Ghada/Magalyitting on:?10/07/2024 12:12 PM EDT
--- OUTSIDE RECORDS SUMMARY | 2024-10-07 12:12 | XMS_ITS ---
Author Organization [facility] Address [address] [place] [address] [place] [address] Care Team Providers Care [employer] Name Role Phone SERENA TAYLOR, SWETA Primary Care Provider Unavail Tae Baires Unavailable [phone] Allergies No Known Allergies REASON FOR VISIT Patient presents today for a COLON SCREENING Medications Medication SIG (Take, Route, Frequency, Duration) Notes Start Date End Date Status Lisinopril 10 MG TAKE 1 TABLET BY TONI TH EVERY DAY Oral for 90 Active Rosuvastatin Calcium 5 MG TAKE 1 TABLET (5 MG TOTAL) BY MOUTH DAILY. Oral for 90 Active Vital Signs Blood pressure systolic 00 mm Hg 07/12/19 25 Blood pressure diastolic 00 mm Hg 025 Height 70 in 07/12/2024 Weight 181 lbs 07/12/2024 BMI 25.97 kg/m2 07/12/2024 Encounters Encounter Location Date Provider Diagnosis [facility] [address] [place] [phone] 07/12/2024 Tae Jessica Eosinophilic esophagitis K20.0 ; Hx of adenomatous colonic polyps Z86.010 and Encounter for screening for malignant neoplasm of colon Z12.11 Assessments Encounter Date Diagnosis (ICD Code) Assessment Notes Treatment Notes Treatment Clinical Notes Section Notes 07/12/2024 Eosinophilic esophagitis (ICD-10 - K20.0) Let me know if you develop any trouble swallowing in regard to the EoE. Overall, Miah appears quite well. He is not having any new no worrisome GI complaints. His underlying history of eosinophilic esophagitis and reflux seems to be asymptomatic without any particular medications at this time. We did review those diagnoses and I advised him that if he begins having dysphagia he should contact me for reevaluation in regard to the eosinophilic esophagitis. I did recommend a followup screening colonoscopy given his age, good clinical condition, the previous history of tubular adenomas, and his last colonoscopy being over 5 years ago. We did review the rationale for this regard to colorectal cancer prevention and/or early detection. Full consent has been obtained for this, including risks of bleeding and perforation. The procedure will be done with monitored anesthesia care. Miah was comfortable with this plan. Thank you again for allowing me to participate in Miah's care. I shall continue to keep you advised of his progress. 07/12/2024 Hx of adenomatous colonic polyps (ICD-10 - Z86.010) Overall, Miah appears quite well. He is not having any new no worrisome GI complaints. His underlying history of eosinophilic esophagitis and reflux seems to be asymptomatic without any particular medications at this time. We did review those diagnoses and I advised him that if he begins having dysphagia he should contact me for reevaluation in regard to the eosinophilic esophagitis. I did recommend a followup screening colonoscopy given his age, good clinical condition, the previous history of tubular adenomas, and his last colonoscopy being over 5 years ago. We did review the rationale for this regard to colorectal cancer prevention and/or early detection. Full consent has been obtained for this, including risks of bleeding and perforation. The procedure will be done with monitored anesthesia care. Miah was comfortable with this plan. Thank you again for allowing me to participate in Miah's care. I shall continue to keep you advised of his progress. 07/12/2024 Encounter for screening for malignant neoplasm of colon (ICD-10 - Z12.11) Overall, Miah appears quite well. He is not having any new no worrisome GI complaints. His underlying history of eosinophilic esophagitis and reflux seems to be asymptomatic without any particular medications at this time. We did review those diagnoses and I advised him that if he begins having dysphagia he should contact me for reevaluation in regard to the eosinophilic esophagitis. I did recommend a followup screening colonoscopy given his age, good clinical condition, the previous history of tubular adenomas, and his last colonoscopy being over 5 years ago. We did review the rationale for this regard to colorectal cancer prevention and/or early detection. Full consent has been obtained for this, including risks of bleeding and perforation. The procedure will be done with monitored anesthesia care. Miah was comfortable with this plan. Thank you again for allowing me to participate in Miah's care. I shall continue to keep you advised of his progress. Plan Of Treatment Treatment Notes Assessment Notes Eosinophilic esophagitis Let me know if you develop any trouble swallowing in regard to the EoE. Future Test Test Name Order Date COLONOSCOPY 07/12/2024 Next Appt Details Follow Up: prn, Reason: Progress Notes * ROBERTO OCAMPODOB:1950 (74 yo M)Acc No.[id number]:07/12/2024 Progress Notes Patient:?ROBERTO OCAMPO Provider:?Tae Jessica MD :1950???Age:74 Y???Sex:Male Yann e:07/12/2024 [facility]: [address] [facility] Pcp:SWETA LYONS NP Subjective: * Chief Complaints: * ???Patient presents today fo r a COLON SCREENING * HPI: ???incontinence:? I saw Miah in consultation today in regard to his underlying history of eosinophilic esophagitis and his personal history of tubular adenomas of the colon with need for colorectal cancer screening. ?I last saw Miah in January of 2019, at which time he underwent a negative followup colonoscopy. He reports that he presently feels well. His bowel movements have been regular and without any signs of bleeding. He denies abdominal pain, jaundice, nor unintentional weight loss. He denies any known family history of colon cancer. ?He currently reports that he is eating comfortable and denies any significant heartburn or dysphagia. He does have a biopsy proven history of eosinophilic esophagitis on a 2012 upper endoscopy. This has never been specifically treated and at the present time he denies any dysphagia. He had previously been on omeprazole for some reflux-type symptoms but he presently reports that is no longer bothering him as well. * ROS:?General/Constitutional:?Change in appetite?denies.?Chills?denies.?Fatigue?denies.?Ophthalmologic:?Patient denies? Negative..?ENT:?Patient denies?Negative..?Respiratory:?Patient denies?No coughing/hemoptysis..?Cardiovascular:?Patient denies? No chest pain/orthopnea..?Gastrointestinal:?Comments?See HPI for details.?Genitourinary:?Patient denies? No dysuria/hematuria..?Musculoskeletal:?Patient denies? No specific arthralgias/myalgias..?Skin:?Patient denies?No rash/pruritus..?Neurologic:?Patient denies? No headaches/seizures..?Psychiatric:?Patient denies?Negative..? * Medical History:? 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 * Family History:?Father: dece ased 100 yrs, [place]/skin cancer.?Mother: 95 yrs.?Maternal Grand Mother: stomach cancer.? He denies any known family history of colorectal cancer or colon polyps. * Social History:?Tobacco Use:?Tobacco Use/Smoking?Are you a: nonsmoker.?Drugs/Alcohol:?Alcohol Screen?Points: 1, Interpretation: Negative.?Miscellaneous:?Marital status: . Occupation: Retired from [employer]. ???Nonsmoker; no sig. alcohol use. * Medications:?TakingLisinopri l 10 MG Tablet TAKE 1 TABLET BY MOUTH EVERY DAY Oral Rosuvastatin Calcium 5 MG Tablet TAKE 1 TABLET (5 MG TOTAL) BY MOUTH DAILY. Oral Taking Lisinopril 10 MG Tablet TAKE 1 TABLET BY MOUTH EVERY DAY Oral Taking Rosuvastatin Calcium 5 MG Tablet TAKE 1 TABLET (5 MG TOTAL) BY MOUTH DAILY. Oral DiscontinuedDicyclomine HCl 10 MG Capsule 1-2 Orally Q 6 hours prn abdominal cramps/discomfortOmeprazole 20 MG Capsule Delayed Release TAKE ONE CAPSULE BY MOUTH EVERY MORNING Medication List reviewed and reconciled with the patientDiscontinued Dicyclomine HCl 10 MG Capsule 1-2 Orally Q 6 hours prn abdominal cramps/discomfortDiscontinued Omeprazole 20 MG Capsule Delayed Release TAKE ONE CAPSULE BY MOUTH EVERY MORNING Medication List reviewed and reconciled with the patient * Allergies:?N.K.D.A.yes[Aller gies Verified] Objective: * Vitals:?Wt: 181 lbs, Ht: 70 in, BMI:25.97 Index, BP: 00/00 mm Hg. * Examination: ???General Examination: ?GENERAL APPEARANCE:?pleasant, well nourished, well developed, in no acute distress.?EYES:?sclera non-icteric.?ORAL CAVITY:?mucosa moist.?NECK/THYROID:?no cervical lymphadenopathy, neck supple.?SKIN:?nonjaundiced, no spider angiomata..?HEART:?S1, S2 normal.?LUNGS:?clear to auscultation bilaterally.?ABDOMEN:?normal bowel sounds, no guarding or rigidity, no hepatosplenomegaly, no masses palpable, soft, nontender, nondistended..?EXTREMITIES:?no edema.?NEUROLOGIC:?alert and oriented.? Assessment: * Assessment: 1.?Eosinophilic esophagitis - K20.0 (Primary)?2.?Hx of adenomatous colonic polyps - Z86.010?3.?Encounter for screening for malignant neoplasm of colon - Z12.11? Overall, Miah appears quite w ell. He is not having any new no worrisome GI complaints. His underlying history of eosinophilic esophagitis and reflux seems to be asymptomatic without any particular medications at this time. We did review those diagnoses and I advised him that if he begins having dysphagia he should contact me for reevaluation in regard to the eosinophilic esophagitis. I did recommend a followup screening colonoscopy given his age, good clinical condition, the previous history of tubular adenomas, and his last colonoscopy being over 5 years ago. We did review the rationale for this regard to colorectal cancer prevention and/or early detection. Full consent has been obtained for this, including risks of bleeding and perforation. The procedure will be done with monitored anesthesia care. iMah was comfortable with this plan. Thank you again for allowing me to participate in Miah's care. I shall continue to keep you advised of his progress. Plan: * Treatment: 2.?Hx of adenomatous colonic polyps?Procedure: COLONOSCOPY (Ordered for 07/12/2024) 3.?Encounter for screening for malignant neoplasm of colon?Procedure: COLONOSCOPY (Ordered for 07/12/2024)* with MACsched for 09/02/24 at 11:30 ammiralax * Procedure Codes:?3017F COLOR ECTAL CA SCREEN DOC [id number] TOBACCO NON-XAFYB8109 BP SCR NOT PRFRM REC REASON NOS * Preventive Medicine:? ??Screenings:?Fall Risk Screening?Fall Risk Assessment:?No falls in the past year,?Screening:?No falls in the past year,?Assessment:?Not performed, no reason specified,?Plan of Care:?Not documented, no reason specified.? * Follow Up:?prn * * Sign off status: Completed true * Provider:?Tae Jessica MD Date:? 025 Generated for Valentine rutherford/Ghada/eTransmitting on:?10/07/2024 12:11 PM EDT History and Physical Notes * HPI (History of Present Illness) Category Sub-Category Detail Notes Category Not es incontinence I saw Miah in consultation today in regard to his underlying history of eosinophilic esophagitis and his personal history of tubular adenomas of the colon with need for colorectal cancer screening. I last saw Miah in January of 2019, at which time he underwent a negative followup colonoscopy. He reports that he presently feels well. His bowel movements have been regular and without any signs of bleeding. He denies abdominal pain, jaundice, nor unintentional weight loss. He denies any known family history of colon cancer. He currently reports that he is eating comfortable and denies any significant heartburn or dysphagia. He does have a biopsy proven history of eosinophilic esophagitis on a 2012 upper endoscopy. This has never been specifically treated and at the present time he denies any dysphagia. He had previously been on omeprazole for some reflux-type symptoms but he presently reports that is no longer bothering him as well. Examination Category Sub-Category Detail Notes Category Not es General Examination GENERAL APPEARANCE: pleasant , well nourished, well developed, in no acute distress EYES: sclera non-icteric NECK/THYROID: no cervical lymphade nopathy, neck supple HEART: S1, S2 normal LUNGS: clear to auscultatio n bilaterally ABDOMEN: normal bowel sounds, no guarding or rigidity, no hepatosplenomegaly, no masses palpable, soft, nontender, nondistended. NEUROLOGIC: alert and oriented SKIN: nonjaundiced, no spi [place]lexand[place] angiomata. EXTREMITIES: no edema ORAL CAVITY: mucosa moist
--- OUTSIDE RECORDS SUMMARY | 2024-10-07 12:12 | XMS_ITS | Patient Health Record ---
Author Organization [facility] Address [address] [place] [phone] Care Team Providers Care Assessment Manager Name Role Phone SERENA TAYLOR, DENNISE Primary Care Provider Unavail able Tae Jessica Unavailable [phone] Allergies No Known Allergies Results Component Value Reference Range Notes Pathology (Not yet reviewed by provider) Interpretation: Performing Lab:[facility], [address] [place] [id number] Notes/Report: Name: Roberto Ocampo Age/Sex: 74/M : 1950 Unit#: [id number] Attend Dr: Tae Jessica MD Re09/02/24 Status : [facility] Location: [facility] Disch: SPEC : [id number] REC STATUS: ESTEVAN MUJICA NUM: [id number] LEANDER: 09/02/24-1040 [facility] DR: Tae Jessica MD ENTERED: 09/02/24- 29 SP TYPE: Surgical OTHR DR: Dennise Gutierrez NP ORDERED: HE Stain/3, Gross Micro L4 Diagnosis Colon, polyp at 20 c m, polypectomy: Hyperplastic polyp. Clinical History Pre-Op Dx: Screening , hx of polyps Post-Op Dx: Polyp, diverticulosis, hemorrhoids Microscopic Description Microscopic sections reviewed. Material Received Polyp at 20cm Gross Description Received in formalin labeled ?polyp at 20 cm? is a fragment of pink-yepez soft tissue measuring 0.3 cm in greatest dimension which is wrapped in lens paper and entirely submitted for microscopic exam ination, 1 piece in cassette A. ([facility]) Copies To: Dennise Gutierrez NP [facility] [address] [place] [id number] Tae Jessica MD [facility] [address] [place] [address] [address] [place], [place] [phone] Signed (si gnature on file) Ifeoma Oliveira MD 09/05/24 1432 END OF REPORT Reason For Referral No Information Medications Medication SIG (Take, Route, Frequency, Duration) Notes Start Date End Date Status Lisinopril 10 MG TAKE 1 TABLET BY TONI TH EVERY DAY Oral for 90 Active Rosuvastatin Calcium 5 MG TAKE 1 TABLET (5 MG TOTAL) BY MOUTH DAILY. Oral for 90 Active Immunizations Vaccine Route Administration Date Status Comme nts Influenza Unknown 02/06/2018 Administered Problems Problem Type SNOMED Code ICD Code Onset Dates Problem Status W/U Status Risk Notes Problem 275298180 Encounter for screening for malignant neoplasm of colon (Z12.11) Active confirmed Problem 582241604 Eosinophilic esophagitis (K20.0) Active confirmed Problem 921064784020092 Preprocedural examination (Z01.818) Active confirmed Problem 639970537 Abdominal pain, left upper quadrant (R10.12) Active confirmed Problem 125156178 Hx of adenomatou s colonic polyps (Z86.010) Active confirmed Vital Signs Blood pressure diastolic 00 mm Hg 07/12/2024 Height 70 in 07/12/2024 Blood pressure systolic 00 mm Hg 07/12/2024 Weight 181 lbs 07/12/2024 BMI 25.97 kg/m2 07/12/2024 Encounters Encounter Location Date Provider Diagnosis [facility] Outpatient [address] [place] [phone] 09/02/2024 Tae Jessica Colon cancer screeni ng Z12.11 ; Personal history of colonic polyps Z86.0100 ; Colon polyps K63.5 and Other hemorrhoids K64.8 [facility] [address] [place] [phone] 07/12/2024 Tae Jessica Eosinophilic esophagitis K20.0 ; Hx of adenomatous colonic polyps Z86.010 and Encounter for screening for malignant neoplasm of colon Z12.11 [facility] [address] [place] [phone] 03/22/2024 Tae Jessica Assessments Encounter Date Diagnosis (ICD Code) Assessment Notes Treatment Notes Treatment Clinical Notes Section Notes 09/02/2024 Colon cancer screening (ICD-10 - Z12.11) 09/02/2024 Personal history of colonic polyps (ICD-10 - Z86.0100) 07/12/2024 Eosinophilic esophagitis (ICD-10 - K20.0) Let [...] adenomatous colonic polyps (ICD-10 - Z86.010) Overall, Miha appears quite well. He is not having [...] to keep you advised of his progress. 09/02/2024 Colon polyps (ICD-10 - K63.5) 07/12/2024 Encounter for screening for malignant neoplasm [...] to keep you advised of his progress. 09/02/2024 Other hemorrhoids (ICD-10 - K64.8) Plan Of Treatment Pending Test Test Name Order Date Pathology 09/02/2024 Future Test Test Name Order Date COLONOSCOPY 08/03/2012 COLONOSCOPY 01/04/2019 COLONOSCOPY 07/12/2024 Insurance Providers Payer Name Payer Address Payer Phone Subscriber Number Group Number Insured Name Patient Relationship to Insured Coverage Start Date Coverage End Date MEDICARE OF [place] [address] [place] [address] [id number] ROBERTO OCAMPO Self - patient is the insured [facility] [address] LYDIA JEREZ [phone] [id number] ROBERTO OCAMPO Self - patient is the insured Medical (General) History Medical History History ICD Code Colonoscopy 05-25-2008-tubular adenoma r emoved Denies MO,DM,CVA,Lung disease,renal dise ase Upper endoscopy in April of 2012 revealed biopsies consistent with eosinophilic esophagitis-he did have a balloon dilation of the gastroesophageal junction at that time-he has been using omeprazole since then-he has had no further dysphagia since starting omeprazole and having the balloon dilation--however, he did subsequently stop the omeprazole and has done well without it Colonoscopy in May 013 was negative other than some sigmoid diverticulosis and internal hemorrhoids Prediabetic Negative screening colonoscopy in 01/2019 Surgical History Surgery Date(Month/Year) 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
== END 2024-10-07 11:07 | disposition home or self-care (01) ==
LOC: HO.LAB 11:06
PROVIDERS: PCP Nurse Practitioner Adult Health; Visit Provider Urology
DX: N40.1 Benign prostatic hyperplasia with lower urinary tract symptoms (principal); Z12.5 Encounter for screening for malignant neoplasm of prostate
CPT/HCPCS: 36415; 84153

== ENCOUNTER 2024-10-12 11:21 | Outpatient (AMB) | payer MEDICARE, OTHER, SELFPAY ==
--- NOTE | 2024-10-12 11:21 | A.OFFVIS_ITS ---
Intake Visit Reasons: 1y/PSA Intake Note: Patient is present for 1Y/PSA Urology Medication:TAMSULOSIN Antibiotic Allergy:NONE Blood Thinner:NONE [employer] Required: No Allergies No Known Allergies [No Known Allergies*] Allergy (Verified 10/12/24 11:22) HPI Comments Details: Miah is a pleasant male. He is a patient of Dr. Gutierrez. He is seen for the following urologic condition - lower urinary tract symptoms Not using medications Symptoms currently stable Twelve month follow-up PSA Lower urinary tract symptoms progressive weakness of stream not currently on any medications associated symptoms - nocturia x2, hesitancy no prior medications normal rectal exam PSA 01/22 3.4, 08/28 3.3, 09/29 2.4 Twelve month follow-up PSA PFSH Medical History Spermatocele Nocturia Benign prostatic hyperplasia with lower urinary tract symptoms Medial meniscus tear Surgical History Hx of tonsillectomy Hx of splenectomy (~1960) History of esophagogastroduodenoscopy (EGD) Hx of colonoscopy Social History Patient Tobacco Use Status: Former Tobacco user Results AMB Urinalysis, Automated UA Leukoctes 0 Shala/uL Last Edit by DEANNA Figueroa on 10/12/24 11:27 UA Nitrite Negative Last Edit by DEANNA Figueroa on 10/12/24 11:27 UA Urobilinogen 0.2 mg/dL Last Edit by DEANNA Figueroa on 10/12/24 11:2 7 UA Protein 0 mg/dL Last Edit by DEANNA Figueroa on 10/12/24 11:27 UA pH 6.0 Last Edit by DEANNA Figueroa on 10/12/24 11:27 UA Blood 0 Saturnino/uL Last Edit by DEANNA Figueroa on 10/12/24 11:27 UA Specific [place] 1.015 Last Edit by DEANNA Figueroa on 10/12/24 11: 27 UA Ketone Negative Last Edit by DEANNA Figueroa on 10/12/24 11:27 UA Bilirubin 0 mg/dL Last Edit by DEANNA Figueroa on 10/12/24 11:27 UA Glucose 0 mg/dL Last Edit by DEANNA Figueroa on 10/12/24 11:27 Results Reviewed Results Reviewed: Laboratory Last Values Urine pH (Auto) 6.0 10/12/24 11:26 Specific [place] (Auto) 1.015 10/12/24 11:26 Urine Protein (Auto) 0 mg/dL 10/12/24 11:26 Glucose (UA)(Auto) 0 mg/dL 10/12/24 11:26 Urine Ketones (Auto) Negative 10/12/24 11:26 Urine Blood (Auto) 0 Saturn[place]/uL 10/12/24 11:26 Urine Nitrite (Auto) Negative 10/12/24 11:26 Urine Bilirubin (Auto) 0 mg/dL 10/12/24 11:26 Urine Urobilinogen (Auto) 0.2 mg/dL 10/12/24 11:26 Leukocyte Esterase (Auto) 0 Shala/uL 10/12/24 11:26 Assessment & Plan Assessment & Plan (1) Erectile dysfunction: Code(s): N52.9 - Male erectile dysfunction, unspecified Category: Medical Orders: Orders AMB Urinalysis Automated Today Z13.9 - Encounter for screening, unspecified Medications: New tadalafil [id number] [facility] [id number] Member [id number] 20 mg PO ONCE 30 days PRN 30 tabs 0RF sexual activity N5 2.01 - Erectile dysfunction due to arterial insufficiency, N52.9 - Male erectile dysfunction, unspecified Coding Diagnoses Erectile dysfunction N52.9
--- OUTSIDE RECORDS SUMMARY | 2024-10-12 12:47 | XMS_ITS | Patient Health Record ---
Author Organization [facility] Address [address] [place] [address] Care Team Providers Care Pyrotechnic Mixer Name Role Phone SERENA TAYLOR, DENNISE Primary Care Provider Unavail able Tae Jessica Unavailable [phone] Allergies No Known Allergies Results Component Value Reference Range Notes Pathology (Not yet reviewed by provider) Interpretation: Performing Lab:[facility], [address] [place] [phone] Notes/Report: Name: Roberto Ocampo Age/Sex: 74/M : 1950 Unit#: [id number] Attend Dr: Tae Jessica MD Re09/02/24 Status : [facility] Location: [facility] Disch: SPEC : [id number] REC STATUS: ESTEVAN MUJICA NUM: [id number] LEANDER: 09/02/24-[address]: Tae Jessica MD ENTERED: 09/02/24- 29 [...] exam ination, 1 piece in cassette A. ([facility]) Copies To: Dennise Gutierrez NP [facility] [address] [place] [address] [id number] Tae Jessica MD [facility] [address] [place] [address] [address] [place], [place] [id number] Signed (si gnature on file) Ifeoma Oliveira [...] Problem Status W/U Status Risk Notes Problem [id number] Encounter for screening for malignant neoplasm of colon (Z12.11) Active confirmed Problem 103647701 Eosinophilic esophagitis (K20.0) Active confirmed Problem [id number] Preprocedural examination (Z01.818) Active confirmed Problem 910012969 Abdominal pain, left upper quadrant (R10.12) Active confirmed Problem 108276636 Hx of adenomatou s colonic polyps (Z86.010) Active confirmed Vital Signs Blood pressure diastolic 00 mm Hg 07/12/2024 Height 70 in 07/12/2024 Blood pressure systolic 00 mm Hg 07/12/2024 Weight 181 lbs 07/12/2024 BMI 25.97 kg/m2 07/12/2024 Encounters Encounter Location Date Provider Diagnosis [facility] [address] [place] [id number] 09/02/2024 Tae Jessica Colon cancer screeni ng Z12.11 ; Personal history of colonic polyps Z86.0100 ; Colon polyps K63.5 and Other hemorrhoids K64.8 [facility] [address] [place] [phone] 07/12/2024 Tae Jessica Eosinophilic esophagitis K20.0 ; Hx of adenomatous colonic polyps Z86.010 and Encounter for screening for malignant neoplasm of colon Z12.11 [facility] [address] [place] [phone] 03/22/2024 Tae Jessica Assessments Encounter Date Diagnosis [...] MEDICARE OF [place] [address] [place] [address] [id number] ROBERTO OCAMPO Self - [facility] the [facility] [address] LYDIA JEREZ [phone] [id number] ROBERTO OCAMPO Self - patient is the insured Medical (General) History Medical History History ICD Code Colonoscopy 05-25-2008-tubular adenoma r emoved Denies SC,DM,CVA,Lung disease,renal dise ase Upper endoscopy in April [...]
--- OUTSIDE RECORDS SUMMARY | 2024-10-12 12:48 | XMS_ITS | Encounter Summary ---
Author Organization [facility] Address [address] [place] [address] Care Team Providers Care Budget Controller Name Role Phone Dennise Gutierrez NP Primary Care Provider [phone] Reason for Visit * Imaging (Routine) - Closed Specialty Diagnoses / Procedures Referred By Contac t Referred To Contact Cardiology Diagnoses Essential hypertension Aortic dilatation (CMS/HCC V24) Procedures Transthoracic echocardiogram (TTE) complete with PRN contrast, bubble, strain, and 3D order panel RI TTE W 2D IMAGE COMPLETE W DOPPLER ECHO & COLOR FLOW DOPPLER ECHO RI ALCIDES 2D COMPLETE W/CONTRAST OR W & WO CONTRAST WITH DOPPLER Dorian Linares MD [address] [place] [address] [address] [place] [address] Phone: tel: fax: [facility] Referral ID Status Reason Start Date Expiration Date Visits Re quested Visits Authorized [id number] Closed 08/15/2024 08/15/2025 1 1 Encounter Details Date Type Department Care Team (Latest Contact Info) Description 10/07/2024 10:00 AM EDT Ancillary Procedure [facility] [address] [place] [address] Essential hypertension; Aortic dilatation (CMS/HCC V24) Social [...] documented in this encounter Plan of Treatment Not on file documented as of this encounter Procedures Procedure Name Priority Date/Time Associated Diagnosis Comments TRANSTHORACIC ECHOCARDIOGRAM (TTE) COMPLETE W/ CONTRAST Routine 10/07/2024 10:36 AM EDT Essential hypertension Aortic dilatation (CMS/HCC V24) documented in this encounter Results * (ABNORMAL) TRANSTHORACIC ECHOCARDIOGRAM (TTE) COMPLETE W/ CONTRAST (10/07/2024 10:36 AM EDT) Left Atrium Minor [place] 5.4 cm CV PACS Left Atrium Major [place] 5.7 cm CV PACS LA Area Sys (A2C) 21 cm2 CV PACS LA Area Sys (A4C) 21 cm2 CV PACS LA Volume (BP) 62 mL CV PACS RA Area 16.8 cm2 CV PACS RA 2D Volume 47 mL CV PACS AV Mean Gradient 4 mmHg CV PACS Ao VTI 32.4 cm CV PACS AV Peak John 1.3 m/s CV PACS AV Peak Gradient 6 mmHg CV PACS AV Area Continuity Equation 2.8 cm2 CV PACS AV Area Peak Velocity 2.9 cm2 CV PACS Aortic Sinus Valsalva 4.2 cm CV PACS Ascending Aorta 3.9 cm CV PACS IVC Proximal 2.0 cm CV PACS IVSD 1.1(A) 0.6 - 1.0 cm CV PACS LVIDD 5.4 4.2 - 5.8 cm CV PACS LVIDS 2.6 2.5 - 4.0 cm CV PACS LVOT Diameter 2.0 cm CV PACS LVOT Mean Grad 3 mmHg CV PACS LVOT Peak VTI 29.2 cm CV PACS LVOT Mean John 0.8 m/s CV PACS LVOT Peak John 1.2 m/s CV PACS LVOT Peak Gradient 6 mmHg CV PACS LVPWD 1.1(A) 0.6 - 1.0 cm CV PACS MV E' Tissue Velocity Lateral 8 cm/s CV PACS MV E' Tissue Velocity Septal 6 cm/s CV PACS LVOT Area 3.1 cm2 CV PACS LVOT Stroke Volume 92 mL CV PACS E Wave Deceleration Time 306(A) 119 - 242 ms CV PACS MV Peak A John 0.70 m/s CV PACS MV Peak E John 0.70 m/s CV PACS PV Acceleration Time 106 ms CV PACS RV Diastolic Basal Dimension 4.1 2.5 - 4.1 cm CV PACS RV S' 13 cm/s CV PACS TAPSE 22 mm CV PACS E/E' Ratio Septal 12 CV PACS E/E' Ratio Averaged 10 CV PACS Relative Wall Thickness ratio 0.41 CV PACS LVOT:AV VTI Index 0.90 CV PACS FS 52 % CV PACS LV Mass 2D 235 g CV PACS LVOT flow 251 mL/s CV PACS AV Velocity Ratio 0.92 CV PACS E/A Ratio 1.0 CV PACS E/E' Ratio Lateral 9 CV PACS BSA 2.04 m2 CV PACS LA Volume Index (BP) 30 mL/m2 CV PACS LVIDD Index 2.65 cm/m2 CV PACS LVIDS Index 1.27 cm/m2 CV PACS LV Mass Index 2D 115(A) 50 - 102 g/m2 CV PACS LVOT Stroke Index 45 mL/m2 CV PACS RA 2D Volume Index 23 18 - 32 mL/m2 CV PACS MARIYA Index (VTI) 1.39 cm2/m2 CV PACS MARIYA Index (Pk John) 1.42 cm2/m2 CV PACS Ascending Aorta Index 1.91 cm/m2 CV PACS Est. RA Pressure 3 mmHg CV PACS Anatomical Region Laterality Modality Ultrasound Narrative 10/08/2024 3:08 PM EDT Left ventricle cavity size is normal. There is mild hypertrophy. Systolic function is normal with an ejection fraction of 55-60%. There are no regional LV wall motion abnormalities. No hemodynamically significant valvular dysfunction Aorta dilated at sinus of valsalva (4.2 cm) and at the upper limit of normal for ascending aorta accounting for age/gender/BSA There is no prior study available for comparison Left Ventricle Left ventricle cavity size is normal. There is mild hypertrophy. Systolic function is normal with an ejection fraction of 55-60%. There are no regional LV wall motion abnormalities. There is no diastolic dysfunction. Right Ventricle Right ventricle cavity appears normal. Prominent papillary muscle present. Systolic function is normal. Left Atrium Left atrium volume index is normal. Right Atrium Right atrium cavity is normal. IVC/SVC RA pressures is estimated to be 3 mmHg (IVC diameter <21 mm and decreases >50% during inspiration). Mitral Valve The leaflets are mildly thickened. There is trace regurgitation. There is no evidence of mitral valve stenosis. Tricuspid Valve The leaflets exhibit normal excursion. There is trace regurgitation. Cannot assess RVSP. Aortic Valve The aortic valve is trileaflet. There is no regurgitation or stenosis. Pulmonic Valve Visualized portions of the pulmonic valve appear normal. There is trace pulmonic valve regurgitation. Ascending Aorta The Sinus of Valsalva is (4.2 cm). The ascending aorta is (3.9 cm). Pericardium Pericardium appears normal. Study Details Overall the study quality was technically difficult. Definity contrast was given to enhance imaging. Study was difficult due to: poor endocardial visualization. us Dorian Linares MD CV ECHO PROCEDURES Final Result documented in this encounter Visit Diagnoses Diagnosis Essential hypertension Unspecified essential hypertension Aortic dilatation (CMS/HCC V24) documented in this encounter Administered Medications Inactive Administered Medications - up to 3 most recent administrations Medication Order MAR Action Action Date Dose Rate Site perflutren lipid microsphere (DEFINITY) 0.78 mL in sodium chloride 0.9% 5.22 mL injection 6 mL, intravenous, Administer over 10 Minutes, Once, On Thu10/07/24 at 1100, For 1 doseIndications:Essential hypertension,Aortic dilatation (CMS/HCC V24) Given 10/07/2024 10:37 AM EDT 6 mL documented in this encounter Orders Medications Ordered That Mark ht Not Have Been Administered Count Last Ordered Date First Ordered Date perflutren lipid microsphere (DEFINITY) 0.78 mL in sodium chloride 0.9% 5.22 mL injection 1 10/07/2024 documented in this encounter Care Teams Budget Controller Relationship Specialty Start Date End Date Dennise Gutierrez NP [address] [place] [address] [address] [place] [address] PCP - General 10/19/21 documented as of this encounter
--- OUTSIDE RECORDS SUMMARY | 2024-10-12 12:48 | XMS_ITS | Clinical Summary ---
Author Organization [facility] Address [address] [facility] [place] [address] Phone Care Team Providers Care Explosive Man Name Role Phone Matt Dennise TAYLOR Primary Care Provider [phone] Allergies No known active allergies Medications lisinopriL [...] Description 10/07/2024 10:00 AM EDT Ancillary Procedure [facility] [address] [place] [phone] Essential hypertension; Aortic dilatation ([facility] V24) 08/15/2024 10:00 AM EDT Office Visit [facility] - [facility] [address] [place] [phone] Albaro Chandler MD Essential hypertension (Primary Dx); Aortic dilatation ([facility] V24); Elevated coronary artery calcium score from Last 3 Months Medical History Medical History Date Comments Type 2 diabetes mellitus wit h hyperglycemia, without long-term current use of insulin ([facility] V24, [facility] V28) Family history of heart disease Social [...] EDT Essential hypertension Aortic dilatation (CMS/HCC V24) ECG 12-LEAD Routine 08/15/2024 10:14 AM EDT Essential hypertension from Last 3 Months Results * (ABNORMAL) TRANSTHORACIC ECHOCARDIOGRAM (TTE) COMPLETE W/ CONTRAST (10/07/2024 10:36 AM EDT) Left Atrium Minor [place] 5.4 cm CV PACS Left Atrium Major [place] 5.7 cm CV PACS LA Area Sys [...] difficult due to: poor endocardial visualization. us Albaro Chandler MD CV ECHO PROCEDURES Final Result * ECG 12 lead (08/15/2024 10:14 AM EDT) Ventricular Rate ECG 57 BPM GEMUSE Atrial Rate 57 BPM GEMUSE P-R Interval 220 ms GEMUSE QRS Duration 120 ms GEMUSE Q-T Interval 390 ms GEMUSE QTc 379 ms GEMUSE P Wave Hamilton 18 degrees GEMUSE R Hamilton -30 degrees GEMUSE T Hamilton 2 degrees GEMUSE ECG Interpretation Sinus bradycardia with 1st degree A-V block Left axis deviation Non-specific intra-ventricu lar conduction delay Abnormal ECG No previous ECGs available Confirmed by ALBARO CHANDLER ([id number]) on 08/15/2024 11:25:58 AM GEMUSE 08/15/2024 10:1 4 AM EDT 08/15/2024 11:25 AM EDT us Albaro Chandler MD ECG ORDERABLES Final Result GEMUSE from Last 3 Months Insurance MEDICARE [facility] Care Teams Explosive Man Relationship Specialty Start Date End Date Dennise Gutierrez NP [address] [place] [address] [address] [place] [address] PCP - General 10/19/21
--- OUTSIDE RECORDS SUMMARY | 2024-10-12 12:48 | XMS_ITS | Continuity of Care Document ---
Author Organization [facility]. If a dditional information is needed, contact Health Information Management at [phone] [address] [place] [address] Phone Care Team Providers Care Business Analytics Manager Name Role Phone Unavailable Unavailable Unavailable Unavailable [...]
--- OUTSIDE RECORDS SUMMARY | 2024-10-12 12:48 | XMS_ITS ---
Author Organization [facility] Address [address] [place] [address] Care Team Providers Care Executive Sous Chef Name Role Phone SWETA LYONS NP Primary Care Provider Unavail Tae Baires Unavailable [phone] REASON FOR VISIT screening, hx polyps Encounters Encounter Location Date Provider Diagnosis [facility] [address] [place] [phone] 09/02/2024 Tae Jessica Colon cancer scree salvador [...] Notes * ROBERTO OCAMPODOB:1950 (74 yo M)Acc No.[id number]:09/02/2024 COLON WITH MAC Patient:?ROBERTO OCAMPO Provider:?Tae Jessica MD :1950???Age:74 Y???Sex:Male Yann e:09/02/2024 Address[address] [facility] Pcp:SWETA LYONS NP Subjective: * Chief Complaints: * ???1. Screening, hx polyps. * Medical History:? Objective: * Vitals:? Assessment: * Assessment: 1.?Colon cancer screening - Z12.11 (Primary)???2.?Personal history of colonic polyps - Z86.0100???3.?Colon polyps - K63.5???4.?Other hemorrhoids - K64.8??? Plan: * Treatment: * Procedure Codes:?57578 COLON OSCOPY AND BIOPSY, Modifiers: PT , [...] MD Date:? 025 Generated for Valentine rutherford/Ghada/Magalyitting on:?10/12/2024 12:47 PM EDT
--- OUTSIDE RECORDS SUMMARY | 2024-10-12 12:48 | XMS_ITS ---
Author Organization [facility] Address [address] [place] [address] [place] [address] Care Team Providers Care Flying Teacher Name Role Phone SERENA TAYLOR, SWETA Primary Care Provider Unavail Tae Baires Unavailable [phone] Allergies No Known Allergies REASON FOR VISIT [...] 07/12/2024 Encounters Encounter Location Date Provider Diagnosis [facility] [address] [place] [phone] 07/12/2024 Tae Jessica Eosinophilic esophagitis K20.0 ; [...] Notes * ROBERTO OCAMPODOB:1950 (74 yo M)Acc No.[id number]:07/12/2024 Progress Notes Patient:?ROBERTO OCAMPO Provider:?Tae Jessica MD :1950???Age:74 Y???Sex:Male Yann e:07/12/2024 Address[address] [facility] Pcp:SWETA LYONS NP Subjective: * Chief Complaints: [...] Family History:?Father: dece ased 100 yrs, in intermediate in [place]/skin cancer.?Mother: 95 yrs.?Maternal Grand Mother: stomach cancer.? He denies any known family history of colorectal cancer or colon polyps. * Social History:?Tobacco Use:?Tobacco Use/Smoking?Are you a: nonsmoker.?Drugs/Alcohol:?Alcohol Screen?Points: 1, Interpretation: Negative.?Miscellaneous:?Marital status: . Occupation: Retired from [employer]. ???Nonsmoker; no sig. alcohol use. * [...] Procedure Codes:?3017F COLOR ECTAL CA SCREEN DOC [id number] TOBACCO NON-EGRVV9805 BP SCR NOT PRFRM REC REASON NOS * Preventive Medicine:? ??Screenings:?Fall Risk Screening?Fall Risk Assessment:?No falls in the past year,?Screening:?No falls in the past year,?Assessment:?Not performed, no reason specified,?Plan of Care:?Not documented, no reason specified.? * Follow Up:?prn * * Sign off status: Completed true * Provider:?Tae Jessica MD Date:? 025 Generated for Valentine rutherford/Ghada/eTransmitting on:?10/12/2024 12:47 PM EDT History and Physical Notes * [...]
--- OUTSIDE RECORDS SUMMARY | 2024-10-12 12:48 | XMS_ITS ---
Author Organization [facility] Address [address] [place] [address] Care Team Providers Care Rod Filler Name Role Phone SERENA TAYLOR, SWETA Primary Care Provider Unavail Tae Baires Unavailable [phone] REASON FOR VISIT screening colon Encounters Encounter Location Date Provider Diagnosis [facility] [address] [place] [address] 04/14/2024 Tae Jessica Plan Of Treatment No Information Progress Notes * ROBERTO OCAMPODOB:1950 (74 yo M)Acc No.[id number]:04/14/2024 Progress Notes Patient:?ROBERTO OCAMPO Provider:?Tae Jessica MD :1950???Age:73 Y???Sex:Male Yann e:04/14/2024 [address] Pcp:SWETA LYONS NP Subjective: * Chief Complaints: [...] MD Date:? 024 Generated for Chaitanyai ng/Fashanig/eTransmitting on:?10/12/2024 12:47 PM EDT
== END 2024-10-12 12:15 | disposition home or self-care (01) ==
LOC: HO.HUSH 11:21
PROVIDERS: PCP Nurse Practitioner Adult Health; Visit Provider Urology
DX: Z13.9 Encounter for screening, unspecified (principal)

== ENCOUNTER → 2024-10-12 11:21 | Outpatient (BNVA) | payer MEDICARE, OTHER, SELFPAY | PROVIDERS: PCP Nurse Practitioner Adult Health; Visit Provider Urology | DX: N40.1 Benign prostatic hyperplasia with lower urinary tract symptoms (principal); R35.1 Nocturia; R39.12 Poor urinary stream | CPT/HCPCS: 81003; 99212 ==